=== PATIENT | male | born 1945 | race Caucasian/White ===

== ENCOUNTER → 2019-08-30 | Outpatient (CLI) | payer OTHER ==
[~2019-08-30] MED LIST: ADULT LOW DOSE81 MG PO; ATIVAN1 MG PO; CARVEDILOL12.5 MG PO; CARVEDILOL25 MG PO; COUMADIN 2.5MG2.5 M1 PO; COUMADIN 5 MG TA5 M1 PO; ELIQUIS5 MG PO; HYDROCHLOROTHIA25 M1 PO; HYDROCHLOROTHIAZIDE; LASIX 20 MG TAB20 MG PO; LISINOPRIL; LISINOPRIL40 MG PO; LO-DOSE ASPIRIN81 M1 PO; MAGNESIUM400 MG PO; MULTI VITAMIN1 EACH PO; ONGLYZA5 MG PO; VITAMIN D35000 UNI1 PO
--- NOTE | 2019-08-30 15:02 | 2DMMODE ---
[facility] [address] [place] [address] 2 D/M-MODE ECHOCARDIOGRAM Name: BEBETO LIN [id number]: 08/30/19 Attend Phys: Erik Fernandes, Discharge: Date of : 49 Report #: [id number] THIS REPORT FOR: //name// APPROVED REPORT Study performed: 08/30/2019 13:34:28 EXAM: Comprehensive 2D, Doppler, and color-flow Echocardiogram Patient Location: Out-Patient Room #: Echo lab 2 Status: routine BSA: 2.32 HR: 110 bpm BP: 130/84 mmHg Rhythm: Atrial Fibrillation Other Information Study Quality: Good Indications Atrial Fibrillation 2D Dimensions RVDd: 34.76 mm IVSd: 12.61 (7-11mm) LVOT Diam: 22.72 (18-24mm) LVDd: 51.58 mm PWd: 13.31 (7-11mm) Ascending Ao: 36.43 (22-36mm) LVDs: 41.03 (25-40mm) Aortic Root: 34.29 mm IVC: 33.00 mm Volumes Left Atrial Volume (Systole) Single Plane 4CH: 121.50 mL Single Plane 2CH: 84.24 mL LA ESV Index: 50.00 mL/m2 Aortic Valve AoV Peak Anastacio.: 1.31 m/s AO Peak Gr.: 6.84 mmHg LVOT Max P.22 mmHg LVOT Max V: 0.75 m/s NICO Vmax: 2.31 cm2 Pulmonary Valve PV Peak Anastacio.: 0.76 m/s PV Peak Gr.: 2.34 mmHg Tricuspid Valve [facility] [address] [place] [address] 2 D/M-MODE ECHOCARDIOGRAM Name: BEBETO LIN Room #: REG [facility]#: [id number] Admission: 08/30/19 Attend Phys: Erik Fernandes, Discharge: Date of : 49 Report #: [id number] TR Peak Anastacio.: 2.40 m/s TR Peak Gr.: 22.96 mmHg PA Pressure: 33.00 mmHg Left Ventricle The left ventricle is normal size. There is normal LV segmental wall motion. Mild concentric left ventricular hypertrophy. The left ventricular systolic function is normal. The left ventricular ejection fraction is within the normal range. LVEF is 50-55%. This study is not technically sufficient to allow evaluation of the LV diastolic function due to atrial fibrillation. Right Ventricle The right ventricle is normal size. The right ventricular systolic function is normal. Atria Left atrium is dilated. Right atrium is dilated. Aortic Valve The aortic valve is mild-moderately calcified. No aortic regurgitation is present. There is no aortic valvular stenosis. Mitral Valve Mild mitral annular calcification Mild mitral regurgitation. No evidence of mitral valve stenosis. Tricuspid Valve The tricuspid valve is normal in structure. There is trace to mild tricuspid regurgitation. Estimated PAP 30 mmHg. There is mild pulmonary hypertension. Pulmonic Valve The pulmonary valve is normal in structure. Trace pulmonic regurgitation. Great Vessels The aortic root is normal in size. IVC is dilated and collapses >50% with inspiration. Pericardium There is no pericardial effusion. <Conclusion> The left ventricular systolic function is normal. [facility] [address] [place] [address] 2 D/M-MODE ECHOCARDIOGRAM Name: BEBETO LIN Room #: REG [facility]#: [id number] Admission: 08/30/19 Attend Phys: Erik Fernandes, Discharge: Date of : 49 Report #: [id number] There is normal LV segmental wall motion. LVEF is 50-55%. Both atria are dilated. The aortic valve is mild-moderately calcified. No aortic regurgitation or stenosis Mild mitral annular calcification. Mild mitral regurgitation. There is trace to mild tricuspid regurgitation. Estimated pulmonary artery pressure of 30 mmHg. There is no pericardial effusion. <ELECTRONICALLY SIGNED> By: Erik Fernandes MD, [facility] 08/30/19 1502 150 1500 Erik Fernandes MD, FACC /INF
== END ==
LOC: CV 11:30
DX: I08.1 Rheumatic disorders of both mitral and tricuspid valves (principal); I48.91 Unspecified atrial fibrillation

== ENCOUNTER → 2020-02-05 | Outpatient (CLI) | payer OTHER | LOC: SJCVC 13:07 | DX: R94.31 Abnormal electrocardiogram [ECG] [EKG] (principal); I44.60 Unspecified fascicular block; I48.21 Permanent atrial fibrillation; I10 Essential (primary) hypertension; E78.5 Hyperlipidemia, unspecified; I71.2 Thoracic aortic aneurysm, without rupture; E11.9 Type 2 diabetes mellitus without complications; J45.40 Moderate persistent asthma, uncomplicated ==

== ENCOUNTER → 2020-02-08 | Outpatient (CLI) | payer OTHER | LOC: SJCVCIMAG 02-07 15:55 | DX: I48.21 Permanent atrial fibrillation (principal); I49.3 Ventricular premature depolarization; Z79.899 Other long term (current) drug therapy ==

== ENCOUNTER → 2020-08-28 | Outpatient (CLI) | payer OTHER | LOC: SJCVC 14:53 | PROVIDERS: ATTEND Internal Medicine | DX: R94.31 Abnormal electrocardiogram [ECG] [EKG] (principal); I48.21 Permanent atrial fibrillation; I10 Essential (primary) hypertension; E78.5 Hyperlipidemia, unspecified; E11.9 Type 2 diabetes mellitus without complications; I71.2 Thoracic aortic aneurysm, without rupture; J45.40 Moderate persistent asthma, uncomplicated; K21.9 Gastro-esophageal reflux disease without esophagitis; J45.909 Unspecified asthma, uncomplicated; G47.33 Obstructive sleep apnea (adult) (pediatric); Z79.82 Long term (current) use of aspirin; Z79.4 Long term (current) use of insulin; Z79.01 Long term (current) use of anticoagulants; Z79.899 Other long term (current) drug therapy; Z87.891 Personal history of nicotine dependence; Z95.0 Presence of cardiac pacemaker ==

== ENCOUNTER → 2021-02-26 | Outpatient (CLI) | payer OTHER | LOC: SJCVC 16:21 | PROVIDERS: ATTEND Internal Medicine | DX: R94.31 Abnormal electrocardiogram [ECG] [EKG] (principal); I49.49 Other premature depolarization; I48.21 Permanent atrial fibrillation; I10 Essential (primary) hypertension; E78.5 Hyperlipidemia, unspecified; I71.2 Thoracic aortic aneurysm, without rupture; J45.40 Moderate persistent asthma, uncomplicated; E11.9 Type 2 diabetes mellitus without complications; G47.33 Obstructive sleep apnea (adult) (pediatric); Z90.49 Acquired absence of other specified parts of digestive tract; Z79.4 Long term (current) use of insulin; Z79.01 Long term (current) use of anticoagulants; Z79.899 Other long term (current) drug therapy; Z87.891 Personal history of nicotine dependence; Z82.49 Family history of ischemic heart disease and other diseases of the circulatory system ==

== ENCOUNTER → 2021-09-02 | Outpatient (CLI) | payer OTHER | LOC: SJCVC 15:17 | PROVIDERS: ATTEND Internal Medicine | DX: R94.31 Abnormal electrocardiogram [ECG] [EKG] (principal); I48.21 Permanent atrial fibrillation; I10 Essential (primary) hypertension; I71.2 Thoracic aortic aneurysm, without rupture; E78.5 Hyperlipidemia, unspecified; E11.9 Type 2 diabetes mellitus without complications; G47.33 Obstructive sleep apnea (adult) (pediatric); Z79.01 Long term (current) use of anticoagulants; Z79.4 Long term (current) use of insulin; Z79.899 Other long term (current) drug therapy; Z87.891 Personal history of nicotine dependence ==